=== PATIENT | male | born 1955 | race Hispanic/Latino ===

== ENCOUNTER 2022-03-25 16:40 | Inpatient (IN) | payer MEDICARE ==
[2022-03-25] VITALS (18 sets, daily range): BP systolic 103–138; BP diastolic 67–94
[~2022-03-25 16:40] MED LIST: BIVALIRUDIN 250 MG/VIAL IV ONE; FENTANYL CITRATE PF 50 MCG/1 ML 2ML VIAL ONE; HEPARIN 10,000 UNIT/10ML (1,000 UNIT/ML) VIAL ONE; IOHEXOL-350 50ML VIAL IV ONE; IOHEXOL-350 75 ML VIAL IV ONE; LIDOCAINE HCL 1% MDV 50ML VIAL ONE; MIDAZOLAM HCL 1 MG/ML 2ML VIAL ONE; NITROGLYCERIN 50MG VIAL ONE
[2022-03-25] MEDS ORDERED: CLOPIDOGREL 300MG TAB ONE (17:40)
[2022-03-25] MEDS ORDERED: IOHEXOL-350 75 ML VIAL IV ONE (17:42)
[2022-03-25] MEDS ORDERED: ONDANSETRON 4MG INJ IVP PRN (18:30)
[2022-03-25] MEDS ORDERED: ACETAMINOPHEN WITH CODEINE 1 TAB TAB PO PRN ×2 (18:30)
[2022-03-25] MEDS ORDERED: NITROGLYCERIN 50MG/D5W 250ML 1 BOT IV PRN (18:30)
[2022-03-25] MEDS ORDERED: 0.9%NACL 1000ML 1,000 ML IV SCH (18:30)
[2022-03-25] MEDS ORDERED: METOPROLOL TARTRATE 25 MG TAB PO SCH (21:00)
[2022-03-25] MEDS: ATORVASTATIN 40 MG TABLET PO SCH (21:03)
[2022-03-26] VITALS (30 sets, daily range): BP systolic 80–124; BP diastolic 50–86
[2022-03-26 04:03] LABS: HEMATOCRIT 44.4 % (42-54); MEAN CORPUSCULAR HEMOGLOBIN 28.8 pg (27.0-33.0); MEAN CORPUSCULAR HGB CONC 33.6 g/dL (32.0-36.0); MEAN CORPUSCULAR VOLUME 85.7 fL (79-99); RED BLOOD CELL COUNT(AUTO) 5.18 MIL/uL (4.50-6.20); RED CELL DISTRIBUTION WIDTH 13.3 % (11.0-15.5); WHITE BLOOD COUNT (AUTO) 9.5 K/uL (4.8-10.8)
[2022-03-26 04:26] LABS: ALBUMIN 2.9 g/dL (3.5-5.0); BILIRUBIN,TOTAL 0.4 mg/dL (0.2-1.0); CREATININE 0.6 mg/dL (0.5-1.5); POTASSIUM 3.9 mmol/L (3.5-5.1); TOTAL PROTEIN, SERUM 6.4 g/dL (6.0-8.3)
[2022-03-26] MEDS: PANTOPRAZOLE 40 MG TAB DR PO SCH (08:24)
[2022-03-26] MEDS: LISINOPRIL 2.5 MG TABLET PO SCH (08:24)
[2022-03-26] MEDS: CARVEDILOL 6.25 MG TABLET PO SCH ×2 (08:25→20:19)
[2022-03-26] MEDS: CLOPIDOGREL 75MG TAB PO SCH (08:25)
[2022-03-26] MEDS: ENOXAPARIN SODIUM 30 MG/0.3 ML SQ SCH (08:26)
[2022-03-26] MEDS: ASPIRIN 325MG TAB PO SCH (08:27)
[2022-03-26] MEDS ORDERED: ASPIRIN 81MG CHEW TAB PO SCH (09:00)
[2022-03-26] MEDS ORDERED: LISINOPRIL 10 MG TABLET PO SCH (09:00)
[2022-03-26] MEDS ORDERED: MIDODRINE HCL 5 MG TABLET PO SCH (09:30)
[2022-03-26] MEDS: INSULIN LISPRO 100 UNIT/ML 3ML SQ SCH ×5 (11:45→20:21)
[2022-03-26] MEDS: ATORVASTATIN 40 MG TABLET PO SCH (20:18)
[2022-03-26] MEDS: INSULIN GLARGINE 100 UNITS/ML 10 ML VIAL SQ SCH (20:20)
[2022-03-27] VITALS (8 sets, daily range): BP systolic 114–139; BP diastolic 71–89
[2022-03-27 03:53] LABS: HEMATOCRIT 42.4 % (42-54); MEAN CORPUSCULAR HEMOGLOBIN 28.1 pg (27.0-33.0); MEAN CORPUSCULAR HGB CONC 32.8 g/dL (32.0-36.0); MEAN CORPUSCULAR VOLUME 85.7 fL (79-99); RED BLOOD CELL COUNT(AUTO) 4.95 MIL/uL (4.50-6.20); RED CELL DISTRIBUTION WIDTH 13.3 % (11.0-15.5); WHITE BLOOD COUNT (AUTO) 10.2 K/uL (4.8-10.8)
[2022-03-27 04:00] LABS: CREATININE 0.7 mg/dL (0.5-1.5); POTASSIUM 3.7 mmol/L (3.5-5.1)
[2022-03-27 04:24] LABS: HEMOGLOBIN A1C 11.7 % (4.0-6.0)
[2022-03-27] MEDS: INSULIN LISPRO 100 UNIT/ML 3ML SQ SCH ×5 (07:15→21:59)
[2022-03-27] MEDS: PANTOPRAZOLE 40 MG TAB DR PO SCH (09:09)
[2022-03-27] MEDS: LISINOPRIL 2.5 MG TABLET PO SCH (09:13)
[2022-03-27] MEDS: CARVEDILOL 6.25 MG TABLET PO SCH ×2 (09:13→22:02)
[2022-03-27] MEDS: ASPIRIN 325MG TAB PO SCH (09:13)
[2022-03-27] MEDS: CLOPIDOGREL 75MG TAB PO SCH (09:13)
[2022-03-27] MEDS: ENOXAPARIN SODIUM 30 MG/0.3 ML SQ SCH (09:14)
[2022-03-27] MEDS ORDERED: INSULIN LISPRO 100 UNIT/ML 3ML SQ SCH (11:30)
[2022-03-27] MEDS ORDERED: METFORMIN HCL 500 MG TAB.SR.24H PO SCH (12:00)
[2022-03-27] MEDS ORDERED: ATOR40TA69 PO (16:36)
[2022-03-27] MEDS ORDERED: LISI2.5T13 PO (16:36)
[2022-03-27] MEDS ORDERED: CARV6.2579 PO (16:36)
[2022-03-27] MEDS ORDERED: CLOP75TA14 PO (16:36)
[2022-03-27] MEDS: METFORMIN HCL 850 MG TABLET PO SCH (16:53)
[2022-03-27] MEDS: INSULIN GLARGINE 100 UNITS/ML 10 ML VIAL SQ SCH (21:57)
[2022-03-27] MEDS: ATORVASTATIN 40 MG TABLET PO SCH (21:59)
[2022-03-28 03:59] LABS: HEMATOCRIT 43.1 % (42-54); MEAN CORPUSCULAR HEMOGLOBIN 28.5 pg (27.0-33.0); MEAN CORPUSCULAR HGB CONC 32.9 g/dL (32.0-36.0); MEAN CORPUSCULAR VOLUME 86.5 fL (79-99); RED BLOOD CELL COUNT(AUTO) 4.98 MIL/uL (4.50-6.20); RED CELL DISTRIBUTION WIDTH 13.6 % (11.0-15.5); WHITE BLOOD COUNT (AUTO) 9.7 K/uL (4.8-10.8)
[2022-03-28 04:06] VITALS: BP 116/75
[2022-03-28 04:33] LABS: CREATININE 0.5 mg/dL (0.5-1.5); POTASSIUM 3.6 mmol/L (3.5-5.1)
[2022-03-28] MEDS: INSULIN LISPRO 100 UNIT/ML 3ML SQ SCH ×2 (05:25→11:54)
[2022-03-28 07:32] VITALS: BP 119/78
[2022-03-28] MEDS: LISINOPRIL 2.5 MG TABLET PO SCH (08:45)
[2022-03-28] MEDS: METFORMIN HCL 850 MG TABLET PO SCH (08:45)
[2022-03-28] MEDS: CARVEDILOL 6.25 MG TABLET PO SCH (08:46)
[2022-03-28] MEDS: ENOXAPARIN SODIUM 30 MG/0.3 ML SQ SCH (08:46)
[2022-03-28] MEDS: CLOPIDOGREL 75MG TAB PO SCH (08:47)
[2022-03-28] MEDS: ASPIRIN 325MG TAB PO SCH (08:47)
[2022-03-28] MEDS: PANTOPRAZOLE 40 MG TAB DR PO SCH (08:54)
[2022-03-28 12:00] VITALS: BP 121/82
[2022-03-28] MEDS ORDERED: ASPI-1005 PO (13:15)
[2022-03-28] MEDS ORDERED: INSU3INS3 SQ (13:15)
[2022-03-28] MEDS ORDERED: EMPA25TA PO (13:15)
[2022-03-28] MEDS ORDERED: ATOR40TA71 PO (13:20)
[2022-03-28] MEDS ORDERED: CLOP75TA32 PO (13:20)
[2022-03-28] MEDS ORDERED: [UNRECOGNIZED DRUG - CODE] MC (13:20)
[2022-03-28] MEDS ORDERED: LISI2.5T13 PO (13:20)
[2022-03-28] MEDS ORDERED: CARV6.25 PO (13:20)
== END 2022-03-28 16:30 | disposition home or self-care (01) | DRG 246 ==
LOC: EDH 16:40 → EDHIP 16:41 → 2CH 18:42 → 2AH 03-27 15:31
PROVIDERS: ADMIT Internal Medicine; ATTEND Internal Medicine
PROC: 4A023N7 Measurement of Cardiac Sampling and Pressure, Left Heart, Percutaneous Approach (ICD-10-PCS; principal; 2022-03-25)
PROC: 027034Z Dilation of Coronary Artery, One Artery with Drug-eluting Intraluminal Device, Percutaneous Approach (ICD-10-PCS; 2022-03-25)
PROC: B2111ZZ Fluoroscopy of Multiple Coronary Arteries using Low Osmolar Contrast (ICD-10-PCS; 2022-03-25)
PROC: B2151ZZ Fluoroscopy of Left Heart using Low Osmolar Contrast (ICD-10-PCS; 2022-03-25)
PROC: B41F1ZZ Fluoroscopy of Right Lower Extremity Arteries using Low Osmolar Contrast (ICD-10-PCS; 2022-03-25)
DX: I21.4 Non-ST elevation (NSTEMI) myocardial infarction (principal); I50.21 Acute systolic (congestive) heart failure; J18.9 Pneumonia, unspecified organism; E11.65 Type 2 diabetes mellitus with hyperglycemia; Z82.49 Family history of ischemic heart disease and other diseases of the circulatory system; I11.0 Hypertensive heart disease with heart failure; I25.10 Atherosclerotic heart disease of native coronary artery without angina pectoris; E78.2 Mixed hyperlipidemia; I25.5 Ischemic cardiomyopathy
CPT/HCPCS: 36415; 71045; 80048; 80053; 80061; 82607; 82948; 83036; 84484; 85027; 93005; 93306; 93458; 99156; 99157; C1760; C1769; C1887; C1894; C9600; G0378; J0583; J1644; J1650; J2250; J3010; J3490; Q9967